=== PATIENT | female | born 1970 | race Caucasian/White ===

== ENCOUNTER 2016-07-22 20:02 | Emergency (ER) | payer MEDICAID ==
--- NOTE | 2016-07-23 05:36 | ER ---
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 The patient is concerned because she has minimal output from her Gomez-Baugh on the left side, and slight labial fullness on the left. Exam remarkable for nontoxic, afebrile, acutely uncomfortable female Gomez-Baugh draining bilaterally. Hemoglobin 8.8. The patient given Zofran 8, Dilaudid 1 mg IV push with improvement. Follow up Dr. Martin next week. Discharged with hydrocodone 5/325 #15 plus 6. Pradeep Merritt MD/ xu JOB #: [id number] CC: Pradeep Merritt MD, Attending Physician Cathi Martin MD, Family Physician Cathi Martin MD
== END 2016-07-22 21:40 | disposition home or self-care (01) ==
LOC: ER 20:02
DX: G89.18 Other acute postprocedural pain (principal); R10.9 Unspecified abdominal pain; Z98.890 Other specified postprocedural states; Z88.8 Allergy status to other drugs, medicaments and biological substances; Z79.899 Other long term (current) drug therapy

== ENCOUNTER 2016-08-05 10:47 | Emergency (ER) | payer MEDICAID ==
--- NOTE | 2016-08-30 14:39 | ER ---
ADMIT: 08/05/2016 RM/LOC: ER [facility] MR#: [id number] [address] [address] SHERYL ERICKSON DARREN [address] [place] [address] Emergency Room Report SEX: F AGE: 46 : 1970 DATE: 08/05/2016 ADDENDUM: CHIEF COMPLAINT: Abdominal wound opening up. HISTORY OF PRESENT ILLNESS: This is a 46-year-old, who had a tummy tuck. There is one small area that has dehisced. EMERGENCY ROOM COURSE: I did a CBC, CMP, lactic acid, everything essentially negative. PLAN: I discharged her home. I told her to continue the antibiotic that she is already on. Followup with her primary care physician or return to the ER if any kind of redness develops or any kind of fever develops. QUINTON Beard / Ramesh Bowen MD / yaryl JOB #: [id number] CC: Ramesh Bowen MD, Attending Physician Bigg Wasserman MD, Family Physician
== END 2016-08-05 13:15 | disposition home or self-care (01) ==
LOC: ER 10:47
DX: T81.31XA Disruption of external operation (surgical) wound, not elsewhere classified, initial encounter (principal); D64.9 Anemia, unspecified; Z98.890 Other specified postprocedural states

== ENCOUNTER 2016-08-23 20:18 | Emergency (ER) | payer MEDICAID ==
--- NOTE | 2016-08-24 19:12 | ER ---
ADMIT: 08/23/2016 RM/LOC: ER [facility] MR#: [id number] [address] [facility] [address] [place] [id number] SHERYL ERICKSON [address] [place] [address] Emergency Room Report SEX: F AGE: 46 : 1970 DATE: 08/23/2016 HISTORY OF PRESENT ILLNESS: The patient is a 46-year-old female, who had a tummy tuck in July. She has had increased pain around the wound. She does have a wound VAC that was prescribed by a provider in our emergency room. She says her surgeon kind of like told her to pack the wound with gauze and that she was done. She refuses to go back to him. She says she was having pain since last night and the pain medication that she has is not helping her. She takes Percocet 7.5 mg. REVIEW OF SYSTEMS: Negative. PAST MEDICAL HISTORY: She had a gastric bypass 9 years ago, with a tummy tuck on 07/20/2016. MEDICATIONS: She has been takin. Percocet. 2. Doxycycline. ALLERGIES: NO ALLERGIES TO MEDICATION. SOCIAL HISTORY: She does smoke a pack a day. PHYSICAL EXAMINATION: VITAL SIGNS: Blood pressure 134/78, heart rate 79, respirations 18, temperature 97.6, O2 saturations 97%. GENERAL: Mildly to moderately anxious. SKIN: There is a vertical scar in the abdomen. The area has a wound VAC and it is looking pretty good as the area is dressed with some wound care tape. Otherwise, the physical examination is within normal limits. EMERGENCY ROOM COURSE: She is a little bit tearful and frustrated because she does not have a surgeon she can follow up with now. The CT scan shows soft- tissue air, 5 mm fluid in the subcutaneous collection which is stranding. This is exactly where the wound VAC is located at. Her CBC within normal limits with a potassium of 3.4, creatinine of 0.6, albumin of 2.6. Her last bowel movement was yesterday. She had pain all day, she is unable to sleep for the 2 days. She is pretty frustrated. She also stated she was hungry and ADMIT: 08/23/2016 RM/LOC: ER [facility] MR#: [id number] [address] [id number] [place] SHERYL BANKS [address] [place] [address] Emergency Room Report SEX: F AGE: 46 : 1970 I offered her a protein drink, which she drank immediately. CLINICAL IMPRESSION: 1. Abdominal pain. 2. Wound care, chronic wound. PLAN: Advised to continue her medications, which include doxycycline. I did change her dose of medication to Percocet 10 mg. she said that her medication really is not helping. I gave her Dr. Paulson, surgeon on-call. She needs to take a stool softener because of her condition. The patient discharged with daughter, instruction not to drive tonight as she did have some medication in the form of morphine and Dilaudid, which did help her greatly. QUINTON Burns / Carlos Phelps MD / yaryl JOB #: [id number] CC: Carlos Phelps MD, Attending Physician Chadwick Paulson MD, Family Physician
== END 2016-08-23 22:55 | disposition home or self-care (01) ==
LOC: ER 20:18
DX: G89.18 Other acute postprocedural pain (principal); R10.9 Unspecified abdominal pain; F17.210 Nicotine dependence, cigarettes, uncomplicated; Z79.899 Other long term (current) drug therapy